=== PATIENT | female | born 1935 | race Caucasian/White ===

== ENCOUNTER 2019-07-11 11:17 | Emergency (ER) | payer MEDICARE, OTHER ==
[2019-07-11] MEDS ORDERED: Sodium Chloride 0.9% 10 ML Syringe FLUSH PRN (11:49)
[2019-07-11] MEDS ORDERED: Sodium Chloride 0.9% 1,000 ML IV STA (11:49)
[2019-07-11] MEDS ORDERED: cefTRIAXone 1 GM in Sodium Chloride 0.9% 100 ML IV ONE (13:49)
--- NOTE | 2019-07-11 13:52 | EDM.PDOC ---
ED HPI GENERAL MEDICAL PROBLEM - General Chief Complaint: Genitourinary Problem Stated Complaint: DIARRHEA/POSS UTI Time Seen by Provider: 07/11/19 11:32 Source of Information: Reports: Patient, Family, Other ([facility] records) History Limitations: Reports: No Limitations - History of Present Illness INITIAL COMMENTS - FREE TEXT/NARRATIVE: The patient presents with diarrhea and possibly a UTI. The patient is a resident of [facility] and she come in with her family. She has had diarrhea for a few days and a cognitive decline. She has dementia but she has been more confused lately. The patient denies fever, chills, cough, chest pain, shortness of breath, abdominal pain, nausea or vomiting. She denies dysuria. Onset: Gradual Duration: Day(s): Severity: Mild Improves with: Reports: None Worsens with: Reports: None Associated Symptoms: Reports: No Other Symptoms - Related Data Allergies Allergy/AdvReac Type Severity Reaction Status Date / Time No Known Allergies Allergy Verified 07/11/19 11:35 Home Meds: Home Meds Cephalexin [Keflex] 500 mg PO BID #10 capsule 07/11/19 [Rx] Losartan [Cozaar] 100 mg PO DAILY 07/11/19 [History] Rosuvastatin [Crestor] 5 mg PO DAILY 07/11/19 [History] Verapamil HCl [Verapamil Sr] 240 mg PO BEDTIME 07/11/19 [History] hydroCHLOROthiazide [Hydrochlorothiazide] 12.5 mg PO DAILY 07/11/19 [History] Past Medical History HEENT History: Reports: Impaired Vision Cardiovascular History: Reports: Hypertension Other Cardiovascular History: AV Block Respiratory History: Reports: None Gastrointestinal History: Reports: None Genitourinary History: Reports: UTI, Recurrent [employer] History: Reports: None Musculoskeletal History: Reports: None Neurological History: Reports: Alzheimers Disease Psychiatric History: Reports: Dementia Endocrine/Metabolic History: Reports: Diabetes, Type II Other Endocrine/Metabolic History: "Abnormal results of thyroid function studies." Hematologic History: Reports: None Immunologic History: Reports: None Oncologic (Cancer) History: Reports: None Dermatologic History: Reports: None - Infectious Disease History Infectious Disease History: Reports: None - Past Surgical History Head Surgeries/Procedures: Reports: None Social & Family History - Tobacco Use Smoking Status *Q: Never Smoker - Caffeine Use Caffeine Use: Reports: Coffee - Recreational Drug Use Recreational Drug Use: No ED ROS GENERAL - Review of Systems Review Of Systems: See Below Constitutional: Reports: No Symptoms HEENT: Reports: No Symptoms Respiratory: Reports: No Symptoms Cardiovascular: Reports: No Symptoms Endocrine: Reports: No Symptoms GI/Abdominal: Reports: No Symptoms : Reports: No Symptoms Musculoskeletal: Reports: No Symptoms Skin: Reports: No Symptoms Neurological: Reports: Confusion ED EXAM, GI/ABD - Physical Exam Exam: See Below Exam Limited By: No Limitations General Appearance: Alert, No Apparent Distress Ears: Normal External Exam Nose: Normal Inspection Head: Atraumatic, Normocephalic Neck: Normal Inspection Respiratory/Chest: No Respiratory Distress, Lungs Clear, Normal Breath Sounds Cardiovascular: Regular Rate, Rhythm, No Edema, No Murmur GI/Abdominal Exam: Soft, Non-Tender, No Organomegaly, No Mass Back Exam: Normal Inspection Extremities: Normal Inspection Course - Vital Signs Last Recorded V/S: Last Vital Signs Temp 98.1 F 07/11/19 11:32 Pulse 66 07/11/19 11:32 Resp 16 07/11/19 11:32 BP 100/61 07/11/19 11:32 Pulse Ox 95 07/11/19 11:32 - Orders/Labs/Meds Orders: Active Orders 24 hr Category Date Time Status Insert Lucia Catheter [Insert Urinary Catheter] [OM.PC] Care 07/11/19 12:20 Ordered Stat Peripheral IV Care [RC] . DIRECTED Care 07/11/19 11:50 Active Urinary Catheter Assessment [RC] ASDIRECTED Care 07/11/19 12:20 Active Sodium Chloride 0.9% [Saline Flush] Med 07/11/19 11:49 Active 10 ml FLUSH ASDIRECTED PRN cefTRIAXone [Rocephin] 1 gm Med 07/11/19 13:49 Active Sodium Chloride 0.9% [Normal Saline] 100 ml IV ONETIME Peripheral IV Insertion Adult [OM.PC] Stat Oth 07/11/19 11:49 Ordered Medication Orders Ceftriaxone Sodium 1 gm/ (Sodium Chloride) 100 mls @ 200 mls/hr IV ONETIME ONE Stop: 07/11/19 14:18 Sodium Chloride (Saline Flush) 10 ml FLUSH ASDIRECTED PRN PRN Reason: Keep Vein Open Last Admin: 07/11/19 12:17 Dose: 10 ml Labs: Laboratory Tests 07/11/19 07/11/19 07/11/19 Range/Units 12:10 12:10 12:30 WBC 5.24 (3.98-10.04) K/mm3 RBC 3.86 L (3.98-5.22) M/mm3 Hgb 12.6 (11.2-15.7) gm/dl Hct 35.5 (34.1-44.9) % MCV 92.0 (79.4-94.8) fl MCH 32.6 H (25.6-32.2) pg MCHC 35.5 (32.2-35.5) g/dl RDW Std Deviation 40.3 (36.4-46.3) fL Plt Count 213 (182-369) K/mm3 MPV 9.5 (9.4-12.3) fl Neut % (Auto) 51.9 (34.0-71.1) % Lymph % (Auto) 28.4 (19.3-51.7) % [place] % (Auto) 10.7 (4.7-12.5) % Eos % (Auto) 8.2 H (0.7-5.8) Baso % (Auto) 0.8 (0.1-1.2) % Neut # (Auto) 2.72 (1.56-6.13) K/mm3 Lymph # (Auto) 1.49 (1.18-3.74) K/mm3 [place] # (Auto) 0.56 H (0.24-0.36) K/mm3 Eos # (Auto) 0.43 H (0.04-0.36) K/mm3 Baso # (Auto) 0.04 (0.01-0.08) K/mm3 Sodium 140 (136-145) mEq/L Potassium 3.6 (3.5-5.1) mEq/L Chloride 104 (98-107) mEq/L Carbon Dioxide 27 (21-32) mEq/L Anion Gap 12.6 (5-15) BUN 24 H (7-18) mg/dL Creatinine 1.2 H (0.55-1.02) mg/dL Est Cr Clr Drug Dosing TNP Estimated GFR (MDRD) 43 (>60) mL/min BUN/Creatinine Ratio 20.0 H (14-18) Glucose 103 (83-115) mg/dL Calcium 9.1 (8.5-10.1) mg/dL Total Bilirubin 0.5 (0.2-1.0) mg/dL AST 17 (15-37) U/L ALT 16 (14-59) U/L Alkaline Phosphatase 77 (46-116) U/L Total Protein 6.8 (6.4-8.2) g/dl Albumin 3.6 (3.4-5.0) g/dl Globulin 3.2 gm/dL Albumin/Globulin Ratio 1.1 (1-2) Urine Color Yellow (Yellow) Urine Appearance Turbid H (Clear) Urine pH 6.0 (5.0-8.0) Ur Specific [place] 1.020 (1.005-1.030) Urine Protein Negative (Negative) Urine Glucose (UA) Negative (Negative) Urine Ketones Negative (Negative) Urine Occult Blood Negative (Negative) Urine Nitrite Positive H (Negative) Urine Bilirubin Negative (Negative) Urine Urobilinogen 0.2 (0.2-1.0) Ur Leukocyte Esterase Trace H (Negative) Urine RBC 0-5 (0-5) /hpf Urine WBC 0-5 (0-5) /hpf Ur Squamous Epith Cells 0-5 (0-5) /hpf Urine Bacteria Moderate H (FEW) /hpf Urine Mucus Not seen (FEW) /hpf Meds: Medications Generic Name Dose Route Start Last Admin Trade Name Freq PRN Reason Stop Dose Admin Ceftriaxone Sodium 1 gm/ 100 mls @ 200 mls/hr 07/11/19 13:49 Sodium Chloride IV 07/11/19 14:18 ONETIME ONE Sodium Chloride 10 ml 07/11/19 11:49 07/11/19 12:17 Saline Flush FLUSH 10 ml ASDIRECTED PRN Administration Keep Vein Open Discontinued Medications Generic Name Dose Route Start Last Admin Trade Name Freq PRN Reason Stop Dose Admin Sodium Chloride 1,000 mls @ 1,000 mls/hr 07/11/19 11:49 07/11/19 12:18 Normal Saline IV 07/11/19 12:48 1,000 mls/hr .BOLUS STA Administration - Re-Assessments/Exams Free Text/Narrative Re-Assessment/Exam: 07/11/19 13:56 I ordered an IV NS 1L bolus, labs and UA. Her CBC looks good. Her creatinine was elevated at 1.2. Her UA shows a UTI. I will give her a dose of rocephin here and a prescription for keflex BID for 5 days. Departure - Departure Time of Disposition: 14:00 Disposition: Home, Self-Care 01 Condition: Good Clinical Impression: UTI, Urinary tract infectious disease - Discharge Information *PRESCRIPTION DRUG MONITORING PROGRAM REVIEWED*: No *COPY OF PRESCRIPTION DRUG MONITORING REPORT IN PATIENT HEATHER: No Prescriptions: Cephalexin [Keflex] 500 mg PO BID #10 capsule Referrals: Vinicio Angulo MD [Primary Care Provider] - Forms: ED Department Discharge Additional Instructions: Drink plenty of water. Take keflex 2 times per day for 5 days. Please return if you are worse. - My Orders Last 24 Hours: My Active Orders 07/11/19 11:49 Sodium Chloride 0.9% [Saline Flush] 10 ml FLUSH ASDIRECTED PRN Peripheral IV Insertion Adult [OM.PC] Stat 07/11/19 11:50 Peripheral IV Care [RC] . DIRECTED 07/11/19 12:20 Insert Lucia Catheter [Insert Urinary Catheter] [OM.PC] Stat Urinary Catheter Assessment [RC] ASDIRECTED 07/11/19 13:49 cefTRIAXone [Rocephin] 1 gm Sodium Chloride 0.9% [Normal Saline] 100 ml IV ONETIME - Assessment/Plan Last 24 Hours: My Active Orders 07/11/19 11:49 Sodium Chloride 0.9% [Saline Flush] 10 ml FLUSH ASDIRECTED PRN Peripheral IV Insertion Adult [OM.PC] Stat 07/11/19 11:50 Peripheral IV Care [RC] . DIRECTED 07/11/19 12:20 Insert Lucia Catheter [Insert Urinary Catheter] [OM.PC] Stat Urinary Catheter Assessment [RC] ASDIRECTED 07/11/19 13:49 cefTRIAXone [Rocephin] 1 gm Sodium Chloride 0.9% [Normal Saline] 100 ml IV ONETIME
== END 2019-07-11 14:45 | disposition home or self-care (01) ==
LOC: JD.ED 11:17
DX: N39.0 Urinary tract infection, site not specified (principal); I10 Essential (primary) hypertension; G30.9 Alzheimer's disease, unspecified; F02.80 Dementia in other diseases classified elsewhere, unspecified severity, without behavioral disturbance, psychotic disturbance, mood disturbance, and anxiety; E11.9 Type 2 diabetes mellitus without complications; Z79.899 Other long term (current) drug therapy
CPT/HCPCS: 36415; 51702; 80053; 81001; 85025; 96360; 96365; 99284; J0696; J7030; J7040; 99283